=== PATIENT | female | born 1940 | race African-American/Black ===

== ENCOUNTER 2021-02-02 01:54 | Emergency (ER) | payer OTHER ==
[~2021-02-02] VITALS: Ht 175.3 cm; Wt 77.3 kg
[2021-02-02 02:00] VITALS: BP 161/82
--- NOTE | 2021-02-02 02:04 | PHYS DOC ---
Past Medical History Past Medical History: Arthritis, CVA Additional Past Medical Histor: RHEUMATOID ARTHRITIS Past Medical History Limited secondary to patient nonverbal at baseline Past Surgical History: Tonsillectomy Additional Past Surgical Histo: Gtube Past Surgical History Limited secondary to patient nonverbal at baseline Smoking Status: Former Smoker Alcohol Use: None Drug Use: None Social History Limited secondary to patient nonverbal at baseline General Adult EDM: Chief Complaint: Gtube dislodgment HPI: HPI: Patient is a 80 year old female on hospice from long-term presents via EMS with report of G-tube displacement this evening. Patient presents to the emergency department for replacement. Patient nonverbal s/p acute CVA 2 months ago at the [facility]. History of present illness limited secondary to patient nonverbal at baseline Review of Systems: Review of Systems: Review of systems limited secondary to patient nonverbal at baseline Heart Score: C/O Chest Pain: N/A Allergies: Allergies: Allergies Coded Allergies Type Severity Reaction Last Updated Verified Penicillins Allergy Unknown Anxiety 05/02/14 Yes Physical Exam: PE: Constitutional: Well developed, well nourished, no acute distress HENT: Normocephalic, atraumatic Eyes: Conjunctiva normal, no discharge Neck: Normal range of motion, supple Lungs & Thorax: No respiratory distress, equal chest rise and fall Abdomen: Soft, no tenderness, gtube site without discharge or bleeding, dislodged tube brought by EMS an 18french Gtube : Hernandez cath noted Skin: Warm, dry, no erythema, no rash Extremities: No tenderness, ROM intact, no edema Neurologic: Alert but not oriented, nonverbal, will follow commands Psychologic: Limited, judgment abnormal EKG: EKG: [] Radiology/Procedures: Radiology/Procedures: PROCEDURE: KUB EXAM: ABDOMEN ONE VIEW. HISTORY: Gastrostomy placement. COMPARISON: None. FINDINGS: A frontal view of the abdomen is obtained after injection of water- soluble contrast through the gastrostomy tube. Contrast is intraluminal within the stomach. A ventriculoperitoneal shunt catheter is noted on the left. There are no distended small bowel loops. There is gas distally. Stool throughout the colon is consistent with constipation. There are moderate degenerative changes of the lower lumbar spine. IMPRESSION: 1. The gastrostomy catheter is intraluminal. 2. Correlate for constipation. Electronically signed by: Behzad Grey MD (02/02/2021 4:23 AM) [facility] Course & Med Decision Making: Course & Med Decision Making Pertinent Imaging studies reviewed. (See chart for details) Patient presents via EMS from long-term hospice with report of G-tube displacement. Patient presents to the ER for replacement. G-tube 18 Italian successfully replaced. Confirmatory x-ray obtained. Patient stable for discharge back to long-term hospice with outpatient follow-up with PCP. Leticia Disclaimer: Leticia Disclaimer: This electronic medical record was generated, in whole or in part, using a voice recognition dictation system. Additional Procedures Progress G-tube replacement Time out performed. Hand hygiene utilized. Wound cleaned with ChloraPrep. Placement of 18-Italian G-tube placed with some difficulty due to contraction of site. Balloon inflated with 20 cc sterile saline. Buttress adjusted. Able to remove some gastric contents with tumi syringe and easily flushes. Confirmatory x-ray obtained with good placement. Patient tolerated procedure well. Departure Departure Impression: Primary Impression: Encounter for feeding tube placement Disposition: 01 HOME / SELF CARE / HOMELESS (Back to long-term) Condition: STABLE Referrals: RIAZ LUEVANO MD Patient Instructions: Gastric Tube Replacement SPENSER DAVIS DO February 02, 2021 02:04
[2021-02-02] MEDS ORDERED: IOHEXOL 240 MG/ML 50ML VIAL. PO ONE (03:30)
[2021-02-02] MEDS ORDERED: CONTRAST GIVEN. MC PRN (03:30)
--- NOTE | 2021-02-02 04:25 | RAD ---
EXAM: ABDOMEN ONE VIEW. HISTORY: Gastrostomy placement. COMPARISON: None. FINDINGS: A frontal view of the abdomen is obtained after injection of water-soluble contrast through the gastrostomy tube. Contrast is intraluminal within the stomach. A ventriculoperitoneal shunt cath eter is noted on the left. There are no distended small bowel loops. There is gas distally. Stool throughout the colon is consis tent with constipation. There are moderate degenerative changes of the lower lumbar spine. IMPRESSION: 1. The gastrostomy catheter is intraluminal. 2. Correlate for constipation. Electronically signed by: Behzad Grey MD (02/02/2021 4:23 AM) [facility]
== END 2021-02-02 04:46 | disposition home or self-care (01) ==
LOC: ER 01:54
DX: K94.23 Gastrostomy malfunction (principal); Z87.891 Personal history of nicotine dependence; Z86.73 Personal history of transient ischemic attack (TIA), and cerebral infarction without residual deficits; Z88.0 Allergy status to penicillin; Y83.8 Other surgical procedures as the cause of abnormal reaction of the patient, or of later complication, without mention of misadventure at the time of the procedure; Y92.89 Other specified places as the place of occurrence of the external cause
CPT/HCPCS: 43762; 74018; 99284